=== PATIENT | male | born 1980 | race Caucasian/White ===

== ENCOUNTER 2019-03-30 20:24 | Emergency (ER) | payer BC, OTHER ==
[2019-03-30 20:59] VITALS: BP 130/69
--- NOTE | 2019-03-30 21:31 | UC ---
Back Pain HPI - HPI Summary HPI Summary: 39 yo male "tweeked" his back twisting at work early this AM Left work early has improved but does not feel able to return to work tonight no leg pain no bowel or bladder dysfunction - History of Current Complaint Chief Complaint: UCBackPain Stated Complaint: BACK SPASMS Time Seen by Provider: 03/30/19 21:22 Hx Obtained From: Patient Onset/Duration: Sudden Onset, Lasting Hours Timing: Constant Severity Initially: Severe Severity Currently: Mild Pain Intensity: 3 Pain Scale Used: 0-10 Numeric Back Pain: Is Discrete @ - see image Character: Throbbing, Spasmodic Aggravating Factor(s): Movement, Lifting, Bending Alleviating Factor(s): Rest, OTC Meds Associated Signs And Symptoms: Positive: Negative Related History: Occupational Injury Full Body (No Head): 1 - pain here - Allergies/Home Medications Allergies/Adverse Reactions: Allergies Allergy/AdvReac Type Severity Reaction Status Date / Time No Known Allergies Allergy Verified 03/30/19 20:53 Home Medications: Home Medications NK [No Home Medications Reported] 03/30/19 [History Confirmed 03/30/19] PMH/Surg Hx/FS Hx/Imm Hx Previously Healthy: Yes - Surgical History Surgical History: None - Family History Known Family History: Positive: Hypertension - Social History Alcohol Use: Occasionally Substance Use Type: None Smoking Status (MU): Light Every Day Tobacco Smoker Amount Used/How Often: <1/2 PPD - Immunization History Most Recent Influenza Vaccination: NOT THIS SEASON Review of Systems All Other Systems Reviewed And Are Negative: Yes Constitutional: Positive: Negative Skin: Positive: Negative Eyes: Positive: Negative ENT: Positive: Negative Respiratory: Positive: Negative Cardiovascular: Positive: Negative Gastrointestinal: Positive: Negative Genitourinary: Positive: Negative Motor: Positive: Negative Neurovascular: Positive: Negative Musculoskeletal: Positive: Myalgia - back Neurological: Positive: Negative Psychological: Positive: Negative Physical Exam Triage Information Reviewed: Yes Appearance: Well-Appearing, No Pain Distress, Well-Nourished Vital Signs: Initial Vital Signs Temp 98.5 F 03/30/19 20:53 Pulse 82 03/30/19 20:53 Resp 16 03/30/19 20:53 BP 130/69 03/30/19 20:53 Pulse Ox 98 03/30/19 20:53 Vital Signs Reviewed: Yes Eyes: Positive: Conjunctiva Clear ENT: Positive: Hearing grossly normal. Negative: Nasal congestion, Nasal drainage, Trismus, Muffled voice, Hoarse voice Neck: Positive: Supple, Nontender, No Lymphadenopathy Respiratory: Positive: Lungs clear, Normal breath sounds, No respiratory distress Cardiovascular: Positive: RRR, No Murmur Musculoskeletal: Positive: ROM Intact, No Edema Neurological: Positive: Alert Psychological Exam: Normal Skin Exam: Normal - Additional Comments pain with twisting decreased ROM back neg SLR normal gait Back Pain Course/Dx - Differential Dx/Diagnosis Provider Diagnosis: Back strain Discharge ED - Sign-Out/Discharge Documenting (check all that apply): Patient Departure All imaging exams completed and their final reports reviewed: No Studies - Discharge Plan Condition: Stable Disposition: HOME Patient Education Materials: Back Pain (ED) Forms: *Work Release Referrals: No Primary Care Phys,NOPCP [Primary Care Provider] - Additional Instructions: ibuprofen for pain recheck for new or worsening symptoms or if not completely better in 1 week call me tomorrow about 3 PM if you need work note extended [phone] - Billing Disposition and Condition Condition: STABLE Disposition: Home
== END 2019-03-30 21:38 | disposition home or self-care (01) ==
LOC: UCCORT 20:24
DX: S39.012A Strain of muscle, fascia and tendon of lower back, initial encounter (principal); F17.210 Nicotine dependence, cigarettes, uncomplicated; X50.0XXA Overexertion from strenuous movement or load, initial encounter; Y92.9 Unspecified place or not applicable
CPT/HCPCS: 99201; G0463